=== PATIENT | female | born 1965 | race Caucasian/White ===

== ENCOUNTER 2020-08-04 09:44 | Emergency (ER) | payer BC, OTHER ==
[2020-08-04] MEDS ORDERED: IBUPROFEN 800 MG TABLET PO ONE (10:12)
--- NOTE | 2020-08-04 10:12 | ER Document Report ---
ED Medical Screen (RME) - General Chief Complaint: Abscess Stated Complaint: FEVER, SKIN PROBLEM Time Seen by Provider: 08/04/20 10:06 Mode of Arrival: Ambulatory Information source: Patient Notes: 54-year-old female presents to ED for a large abscess to the right axilla and and breast. She does have a fever of 100.9 now she did have a fever of 102 at 8:00 took Tylenol. I will order some ibuprofen right now. She states she does have a headache with it. The cellulitis area almost encompasses the right breast. Patient is alert oriented respirations regular nonlabored speaking in full sentences. She is got some significant cellulitis I have greeted and performed a rapid initial assessment of this patient. A comprehensive ED assessment and evaluation of the patient, analysis of test results and completion of medical decision making process will be conducted by an additional ED providers. - Related Data Allergies/Adverse Reactions: No Known Allergies Allergy (Unverified 08/04/20 10:06) Physical Exam - Vital signs Vitals: Temp Pulse Resp BP Pulse Ox 100.9 F H 94 16 125/61 98 08/04/20 09:56 08/04/20 09:56 08/04/20 09:56 08/04/20 09:56 08/04/20 09:56 Course - Vital Signs Vital signs: Temp Pulse Resp BP Pulse Ox 100.9 F H 94 16 125/61 98 08/04/20 09:56 08/04/20 09:56 08/04/20 09:56 08/04/20 09:56 08/04/20 09:56
[2020-08-04 10:42] LABS: ABSOLUTE EOSINOPHILS # (AUTO) 0.1 10^3/uL (0.0-0.6); ABSOLUTE LYMPHOCYTES (AUTO) 2.5 10^3/uL (0.5-4.7); ABSOLUTE MONOCYTES (AUTO) 0.8 10^3/uL (0.1-1.4); ABSOLUTE NEUT (AUTO) 8.1 10^3/uL (1.7-8.2); BASOPHILS % (AUTO) 0.4 % (0-2); EOSINOPHILS % (AUTO) 0.6 % (0-6); HEMATOCRIT 32.5 % (36.0-47.0); HEMOGLOBIN 11.2 g/dL (12.0-15.5); LYMPHOCYTES % (AUTO) 21.7 % (13-45); MEAN CORPUSCULAR HGB CONC 34.4 g/dL (32.0-36.0); MEAN CORPUSCULAR VOLUME 96 fl (80-97); MONOCYTES % (AUTO) 7.2 % (3-13); PLATELET COUNT 149 10^3/uL (150-450); RED BLOOD COUNT 3.39 10^6/uL (3.72-5.28); RED CELL DISTRIBUTION WIDTH 13.4 % (11.5-14.0); SEGMENTED NEUTROPHILS % (AUTO) 70.1 % (42-78); TOTAL CELLS COUNTED % (AUTO) 100 %; WHITE BLOOD COUNT 11.6 10^3/uL (4.0-10.5)
[2020-08-04 10:44] LABS: ALBUMIN 4.5 g/dL (3.5-5.0); ALKALINE PHOSPHATASE 93 U/L (38-126); ANION GAP 10 (5-19); APPEARANCE,URINE SLIGHTLY-CLOUDY; ASPARTATE AMINO TRANSFERASE 64 U/L (14-36); BILIRUBIN,DIRECT 0.1 mg/dL (0.0-0.4); BILIRUBIN,TOTAL 0.7 mg/dL (0.2-1.3); BILIRUBIN,URINE NEGATIVE (NEGATIVE); BLOOD UREA NITROGEN 11 mg/dL (7-20); CALCIUM 9.5 mg/dL (8.4-10.2); CARBON DIOXIDE 25 mmol/L (22-30); CHLORIDE 104 mmol/L (98-107); COLOR,URINE AMBER; GLUCOSE 119 mg/dL (75-110); GLUCOSE, URINE NEGATIVE (NEGATIVE); KETONES,URINE NEGATIVE (NEGATIVE); LEUKOCYTE ESTERASE,URINE TRACE (NEGATIVE); NITRITE,URINE NEGATIVE (NEGATIVE); POTASSIUM 4.3 mmol/L (3.6-5.0); PROTEIN,URINE 30 mg/dL (NEGATIVE); TOTAL PROTEIN 7.6 g/dL (6.3-8.2); URINE SPECIFIC GRAVITY 1.029
[2020-08-04] MEDS ORDERED: CLINDAMYCIN 600 MG/D5W RTU 600 MG/50 ML RTUPB IV ONE (11:44)
[2020-08-04] MEDS ORDERED: LIDOCAINE 2% INJ (20 MG/ML) 20 ML MDV INJ ONE (11:48)
--- NOTE | 2020-08-04 11:49 | ER Document Report ---
ED Skin Rash/Insect Bite/Abscs - General Chief Complaint: Abscess Stated Complaint: FEVER, SKIN PROBLEM Time Seen by Provider: 08/04/20 10:06 Mode of Arrival: Ambulatory Notes: 54-year-old woman presents to the emergency department with a history of a area in her right lateral chest wall and with swelling, redness, tenderness which has developed over the past 5 days. She had 102 fever this morning. She is not diabetic and denies a history of immunocompromise disease. - Related Data Allergies/Adverse Reactions: No Known Allergies Allergy (Unverified 08/04/20 10:06) Past Medical History - General Information source: Patient - Social History Smoking Status: Never Smoker Frequency of alcohol use: Occasional Family History: Reviewed & Not Pertinent - Past Medical History Cardiac Medical History: Reports: Hx Hypercholesterolemia, Hx Hypertension Renal/ Medical History: Reports: Hx Kidney Stones Past Surgical History: Reports: Hx Hysterectomy Review of Systems - Review of Systems Notes: Constitutional: Negative for fever. HENT: Negative for sore throat. Eyes: Negative for visual changes. Cardiovascular: Negative for chest pain. Respiratory: Negative for shortness of breath. Gastrointestinal: Negative for abdominal pain, vomiting or diarrhea. Genitourinary: Negative for dysuria. Musculoskeletal: Negative for back pain. Skin: See HPI Neurological: Negative for headaches, weakness or numbness. 10 point ROS negative except as marked above and in HPI. Physical Exam - Vital signs Vitals: Temp Pulse Resp BP Pulse Ox 100.9 F H 94 16 125/61 98 08/04/20 09:56 08/04/20 09:56 08/04/20 09:56 08/04/20 09:56 08/04/20 09:56 - Notes Notes: PHYSICAL EXAMINATION: Physical Exam: General: Well-nourished well-developed 54-year-old woman in no acute distress HEENT: NC/AT, pupils equal round and reactive to light, MM moist,nares clear, oropharynx clear, airway patent Neck: supple, no adenopathy, no masses. Good range of motion Lungs: clear, no wheezing, no rales no rhonchi CVS: Regular rate and rhythm no murmur gallop or rub Abdomen: Soft, active, nontender, no masses, no hepatosplenomegaly Ext: No edema, clubbing or cyanosis. Neuro: Alert and responsive, moving all 4 extremities on command, cranial nerves intact, no focal findings Skin: Right lateral chest wall the edge of the breast tissue erythema appro ximately 13 cm with a central area of firmness and tenderness. No drainage noted. PSYCH: Normal mood, normal affect. Course - Re-evaluation Re-evalutation: 08/04/20 15:39 I discussed the patient with the surgeon on-call, , he states that the incision and drainage could be performed in the emergency department and th at the patient follow-up with the general surgery office. I have explained to the patient we will perform the incision and drainage procedure in the emergency department that we will use local anesthesia and he is in agreement with this plan. - Vital Signs Vital signs: Temp Pulse Resp BP Pulse Ox 99.1 F 89 19 112/57 L 100 08/04/20 16:03 08/04/20 16:03 08/04/20 16:03 08/04/20 16:03 08/04/20 16:03 - Laboratory Result Diagrams: 08/04/20 10:15 08/04/20 10:15 Laboratory results interpreted by me: 08/04/20 08/04/20 08/04/20 10:15 10:15 10:15 WBC 11.6 H RBC 3.39 L Hgb 11.2 L Hct 32.5 L Plt Count 149 L Glucose 119 H AST 64 H ALT 63 H Urine Protein 30 H Urine Blood SMALL H Urine Urobilinogen 2.0 H Ur Leukocyte Esterase TRACE H Procedures - Incision and Drainage Right Chest Type: Simple Anesthetic type: 2% Lidocaine mL's of anesthetic: 10 Blade size: 11 I&D procedure: Chlorprep applied Incision Method: Incision made by scalpel - 11 scalpel Amount/type of drainage: 7 Notes: 08/04/20 15:41 The area was prepped with ChloraPrep, sterile drapes were applied, #11 blade is used to make a 2 cm incision, curved Kellys used to break adhesions and a copious amount of pus was drained from the wound site. Quarter inch iodoform packing material was placed within the wound site. Sterile dressing was applied and the patient is being discharged home to follow-up with general surgery as an outpatient. Discharge - Discharge Clinical Impression: Cutaneous abscess of chest wall Condition: Good Disposition: HOME, SELF-CARE Instructions: Abscess ([facility]), Post Incision and Drainage Additional Instructions: You were seen in the emergency department today with an abscess in the right posterior chest. An incision and drainage procedure was performed packing was placed within the incision site. Please take your medications as prescribed clindamycin, ibuprofen. Follow-up with the general surgeon on Thursday for packing removal and reassessment. If your symptoms are worsening or if you have other concerns you may return to the emergency department for recheck. HOME CARE INSTRUCTIONS & INFORMATION: Thank you for choosing us for your medical needs. We hope you're satisfied with the care you received. After you leave, you must properly care for your problem and, at the same time, observe its progress. Any condition can change. Some illnesses can change rapidly over hours or days. If your condition worsens, return to the Emergency Department or see your physician promptly. ABOUT YOUR X-RAYS AND EKG'S: If you had an EKG or X-rays taken, they have been read by the Emergency Physician. The X-rays and EKG's will also be read by a Radiologist or Board Hammer Operator within 24 hours. If discrepancies are noted, you will be notified by telephone. Please be certain the ED has a correct telephone number & address where you can be reached. Also, realize that some fractures or abnormalities do not show up on initial X-rays. If your symptoms continue, see your physician. ABOUT YOUR LABORATORY TEST: If you had laboratory tests, the results have been reviewed by the Emergency Physician. Some test results (for example cultures) may not be available for several days. You will be contacted if any test result shows you need additional treatment. Please be certain the ED has a correct telephone number and address where you can be reached. ABOUT YOUR MEDICATIONS: You will receive instructions on how to take your medicine on the prescription label you receive. Additional information may be provided by the Pharmacy. If you have questions afterwards, call the ED for clarification or further instructions. Some prescribed medications may cause drowsiness. Do not perform tasks such as driving a car or operating machinery without consulting your Pharmacist. If you feel you need a refill of pain medication, your condition will need re-evaluation. Please do not call for a refill of any medication. ABOUT YOUR SIGNATURE: Signature of this document acknowledges to followin. Understanding that you received emergency treatment and that you may be released before al medical problems are known or treated. Please be certain the ED has a correct phone number & address where you can be reached. 2. Acknowledgement that you will arrange for follow-up care as recommended. 3. Authorization for the Emergency Physician to provide information to your follow-up Physician in order to maximize your care. AT ANY TIME, IF YOUR SYMPTOMS CHANGE SIGNIFICANTLY OR WORSEN OR YOU DEVELOP NEW SYMPTOMS, RETURN TO THE EMERGENCY DEPARTMENT IMMEDIATELY FOR RE-EVALUATION. OUR GOAL IS TO PROVIDE EXCELLENT MEDICAL CARE! WE HOPE THAT WE HAVE MET YOUR EXPECTATIONS DURING YOUR EMERGENCY DEPARTMENT VISIT AND THAT YOU FEEL YOU HAVE RECEIVED EXCELLENT CARE! Prescriptions: Clindamycin HCl 300 mg PO TID #30 capsule Ibuprofen [Motrin 800 mg Tablet] 800 mg PO Q8H PRN #30 tab PRN Reason:
--- NOTE | 2020-08-04 12:20 | PDOC CONSULTATION ---
Consultation Consult Date: 08/04/20 Attending physician:: MARY LIRA Provider Consulted: KEIRY BURROWS Consult reason:: skin abscess History of Present Illness History of Present Illness: CARMEN HOPSON is a 54 year old female presents to the emergency department with a history of a area in her right lateral chest wall and with swelling, redness, tenderness which has developed over the past 5 days. She had 102 fever this mo rning. She is not diabetic and denies a history of immunocompromise disease. unsure if she had an insect bite that started it c/o tenderess reported a fever of 102, no chills. Past Medical History Cardiac Medical History: Reports: Hyperlipidema, Hypertension Past Surgical History Past Surgical History: Reports: Hysterectomy Social History Smoking Status: Never Smoker Family History Parental Family History Reviewed: No Children Family History Reviewed: NA Sibling(s) Family History Reviewed.: NA Medication/Allergy Allergies/Adverse Reactions: No Known Allergies Allergy (Unverified 08/04/20 10:06) Review of Systems Constitutional: PRESENT: fatigue, fever(s) Eyes: PRESENT: as per HPI Nose, Mouth, and Throat: ABSENT: as per HPI, headache(s), mouth pain, sore throat, vertigo, other Breasts: ABSENT: as per HPI, other Cardiovascular: ABSENT: as per HPI, chest pain, dyspnea on exertion, edema, o rthropnea, palpitations, other Respiratory: ABSENT: as per HPI, cough, dyspnea, hemoptysis, sputum, other Gastrointestinal: ABSENT: as per HPI, abdominal pain, bloating, coffee ground emesis, constipation, diarrhea, dysphagia, heartburn, hematemesis, hematochezia, melena, nausea, vomiting, other Genitourinary: ABSENT: as per HPI, difficulty urinating, dysuria, hematuria, nocturia, other Musculoskeletal: ABSENT: as per HPI, back pain, deformity, joint swelling, muscle weakness, other Integumentary: ABSENT: as per HPI, diaphoresis, erythema, lesions, pruritus, rash, wounds, other Neurological: ABSENT: as per HPI, abnormal gait, abnormal movements, abnormal speech, confusion, convulsions, dizziness, focal weakness, frequent falls, lack of coordination, memory loss, numbness, paresthesias, restless legs, syncope, tingling, tremor(s), vertigo, weakness, other Psychiatric: ABSENT: as per HPI, anxiety, depression, hallucinations, homidical ideation, suicidal ideation, other Endocrine: ABSENT: as per HPI, cold intolerance, flushing, heat intolerance, menstrual abnormalities, polydipsia, polyphagia, polyuria, other Hematologic/Lymphatic: ABSENT: as per HPI, easy bleeding, easy bruising, lymphadenopathy, other Allergic/Immunologic: ABSENT: as per HPI, seasonal rhinorrhea, other Physical Exam Vital Signs: Temp Pulse Resp BP Pulse Ox 100.9 F H 94 16 125/61 98 08/04/20 09:56 08/04/20 09:56 08/04/20 09:56 08/04/20 09:56 08/04/20 09:56 Intake & Output 08/03/20 08/04/20 08/05/20 06:59 06:59 06:59 Weight 92 kg General appearance: PRESENT: no acute distress, obese Head exam: PRESENT: atraumatic Eye exam: PRESENT: EOMI Ear exam: PRESENT: normal external ear exam Mouth exam: PRESENT: moist Neck exam: PRESENT: full ROM Respiratory exam: PRESENT: clear to auscultation ajay Cardiovascular exam: PRESENT: RRR Pulses: PRESENT: normal radial pulses, normal femoral pulses Breast: PRESENT: Normal GI/Abdominal exam: PRESENT: soft Rectal exam: PRESENT: deferred Musculoskeletal exam: PRESENT: other - on the lateral chest walll, multlipe skin folds due to her obesitiy there is a palp 3-4 cm abscess iwth punctate openng with some min drainage and surrounding cellulitis of approx 12m. Neurological exam: PRESENT: alert, awake, oriented to person, oriented to place Psychiatric exam: PRESENT: appropriate affect Skin exam: PRESENT: dry Results Laboratory Results: 08/04/20 10:15 08/04/20 10:15 08/04/20 08/04/20 08/04/20 10:15 10:15 10:15 WBC 11.6 H RBC 3.39 L Hgb 11.2 L Hct 32.5 L MCV 96 MCH 33.0 MCHC 34.4 RDW 13.4 Plt Count 149 L Seg Neutrophils % 70.1 Sodium 139.2 Potassium 4.3 Chloride 104 Carbon Dioxide 25 Anion Gap 10 BUN 11 Creatinine 0.55 Est GFR ( Amer) > 60 Glucose 119 H Calcium 9.5 Total Bilirubin 0.7 AST 64 H Alkaline Phosphatase 93 Total Protein 7.6 Albumin 4.5 Urine Color JING Urine Appearance SLIGHTLY-CLOUDY Urine pH 5.0 Ur Specific [place] 1.029 Urine Protein 30 H Urine Glucose (UA) NEGATIVE Urine Ketones NEGATIVE Urine Blood SMALL H Urine Nitrite NEGATIVE Ur Leukocyte Esterase TRACE H Urine WBC (Auto) 5 Urine RBC (Auto) 4 Assessment & Plan - Plan Summary Plan Summary: impression skin abscess, infected sara cyst vs furuncle vs insect bite reommend incision and drainage iwth pack of iodoform gauze and oral abx for staph coverage pt can be discharged home iwth f/u in surgery clinic next wk.
[2020-08-04 16:05] VITALS: BP 112/57
== END 2020-08-04 16:03 | disposition home or self-care (01) ==
LOC: ER 09:44
PROC: 0H95XZZ Drainage of Chest Skin, External Approach (ICD-10-PCS; principal; 2020-08-04)
DX: L02.213 Cutaneous abscess of chest wall (principal); R50.9 Fever, unspecified; I10 Essential (primary) hypertension
CPT/HCPCS: 99284; 96365; 36415; 87040; 87070; 87205; 85025; 87077; 80053; 81001; 87186; 10060; J3490